=== PATIENT | male | born 1995 | race Two or more races ===

== ENCOUNTER 2025-06-10 02:16 | Emergency (ER) | payer MEDICAID, SELFPAY ==
[2025-06-10 02:18] VITALS: BP 187/125; PULSE 111; RESP 18; TEMP 37.1; O2SAT 95
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
[2025-06-10 02:19] VITALS: BMI 20.3
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
--- NOTE | 2025-06-10 02:19 | XR_ITS ---
EXAMINATION: AP pelvis single view TECHNIQUE: AP portable supine pelvis single view Date and time: June 10, 2025F, 0225 hours INDICATIONS: Left leg and groin pain today. FINDINGS: No right or left hip fracture or dislocation Bones of the pelvis intact IMPRESSION: No hip or pelvic fracture
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
[2025-06-10 03:58] VITALS: BP 124/79; PULSE 63; RESP 18; TEMP 37.1; O2SAT 97
[2025-06-10 05:03] VITALS: BP 128/89; PULSE 87; RESP 19; TEMP 36.7; O2SAT 98
== END 2025-06-10 05:06 ==
PROVIDERS: Emergency Provider Emergency Medicine
DX: Z02.89 Encounter for other administrative examinations (principal); S89.92XA Unspecified injury of left lower leg, initial encounter; S19.9XXA Unspecified injury of neck, initial encounter; S09.93XA Unspecified injury of face, initial encounter; R10.32 Left lower quadrant pain; Y35.833A Legal intervention involving a conducted energy device, suspect injured, initial encounter; Y35.813A Legal intervention involving manhandling, suspect injured, initial encounter
CPT/HCPCS: 70450; 72125; 72170; 73562; 81001; 99283